=== PATIENT | male | born 2000 ===

== ENCOUNTER → 2021-08-20 | Outpatient (REF) ==
--- NOTE | 2021-08-20 09:17 | Diagnostic Imaging Report ---
EXAM: Lumbar spine radiograph EXAM DATE: 08/20/2021 COMPARISON: None. HISTORY: Preemployment exam. TECHNIQUE: 3 views of the lumbar spine and sacrum. FINDINGS: Vertebral body heights and alignment are normal. There is no acute fracture seen. Disc heights are preserved. Soft tissues are normal. No significant facet hypertrophy. IMPRESSION: No acute osseous abnormality of the lumbar spine. Dictated by: Dictated on workstation # [id number]
== END ==
LOC: OCC 08:51
PROVIDERS: ATTEND Nurse Practitioner Family
DX: Z02.89 Encounter for other administrative examinations (principal)
CPT/HCPCS: 72100